=== PATIENT | male | born 1955 | race Caucasian/White ===

== ENCOUNTER → 2017-12-19 | Outpatient (CLI) | payer OTHER ==
--- NOTE | 2017-12-19 11:36 | RADIOLOGY REPORT (SQ) ---
EXAM DESCRIPTION: NM PARATHYROID IMAGING COMPLETED DATE/TIME: 12/19/2017 11:14 am REASON FOR STUDY: HYPERPARATHYROIDISM (E21.3), HYPERCALCEMIA (E83.52) E21.5 DISORDER OF PARATHYROID GLAND, UNSPECIFIED COMPARISON: None. RADIONUCLIDE AND DOSE: 20.8 millicuries Tc-99m Sestamibi. The route of agent administration: Intravenous ADDITIONAL DRUGS AND DOSES: None. TECHNIQUE: Early and delayed images of the neck acquired following radionuclide administration. LIMITATIONS: None. FINDINGS: Thyroid: Normal size. Homogeneous activity. Normal washout. No focal lesions. Parathyroid: No retained activity in the thyroid or elsewhere in the neck to indicate a parathyroid a denoma. Other: No other significant findings. IMPRESSION: NORMAL STUDY. NO EVIDENCE OF PARATHYROID ADENOMA. TECHNICAL DOCUMENTATION: JOB ID: [id number] [employer]- All Rights Reserved Reading location - IP/workstation name: [email or web address]
== END ==
LOC: RAD 07:33
PROVIDERS: ATTEND Nurse Practitioner Family
DX: E21.3 Hyperparathyroidism, unspecified (principal); N18.3 Chronic kidney disease, stage 3 (moderate)
CPT/HCPCS: 78070; A9500

== ENCOUNTER 2018-07-02 07:49 | Day surgery (SDC) | payer OTHER ==
[2018-07-02 08:34] LABS: INTERNATIONAL RATION (INR) 0.87; PROTHROMBIN TIME 12.3 SEC (11.4-15.4)
[2018-07-02 08:35] LABS: PARTIAL THROMBOPLASTIN TIME 25.5 SEC (23.5-35.8)
--- NOTE | 2018-07-02 13:18 | RADIOLOGY REPORT (SQ) ---
EXAM DESCRIPTION: MYELOGRAM CERVICAL; CT CERVICAL SPINE WITH COMPLETED DATE/TIME: 07/02/2018 11:27 am; 07/02/2018 11:47 am REASON FOR STUDY: RADICULOPATHY, CERVICAL REGION M54.12 RADICULOPATHY, CERVICAL REGION COMPARISON: None. FLUOROSCOPY TIME: 1.5 minutes 12 digital radiographic and digital fluoroscopic images of the cervical spine, postmyelogram CT with sagittal and coronal, and oblique reconstructions images saved to PACS. TECHNIQUE: Fluoroscopic guided lumbar myelogram. Postmyelogram CT with multiplanar reconstructions. LIMITATIONS: None. PROCEDURE: After written consent and assessment were obtained, the patient was brought into the fluo roscopy room and placed prone on the table. The patient's lower back was prepped with Betadine and d raped in a sterile fashion and an entry site was selected under live fluoroscopic guidance. The entry site was anesthetized with 5 mL of 1% lidocaine. The spinal needle was advanced through the skin and into the thecal sac at the right paracentral L2-3 level. Contrast was injected into the thecal sac. Following the procedure the needle was removed and a sterile bandage was placed of the site. CONTRAST: 5 mL of Isovue 300 M IMAGES ACQUIRED: Postmyelogram fluoroscopic and radiographic images. Postmyelogram CT with multiplan ar reconstructions TECHNIQUE: After performing lumbar myelogram, axial images were acquired through the lumbar spine wi thout intravenous contrast. Images reviewed with lung, soft tissue and bone windows. Reconstructed coronal and sagittal MPR images reviewed. All images stored on PACS. All CT scanners at this facility use dose modulation, iterative reconstruction, and/or weight based d osing when appropriate to reduce radiation dose to as low as reasonably achievable (ALARA). [facility]: Dose Right [facility]: CareDose [facility]: Dose Right [facility]: Teradose 4D [facility]: Scarosso FINDINGS: SEGMENTATION: Normal. No transitional anatomy. ALIGNMENT: Minimal retrolisthesis of C3 over C4. VERTEBRAL BODIES: No fractures. No dislocation. No acute findings. HARDWARE: Post fusion at C4-5 and C5-6 with anterior fixation plate and intervertebral disc bone coco ts which are incorporated Craniocervical junction, C1-2 and C2-3 are unremarkable. At C3-4, broad diffuse mild disc bulge and bony spurring left greater than right partially effaces th e ventral thecal sac and abuts the ventral cord without cord flattening or significant central stenos is. No right foraminal narrowing. Moderate to high-grade left foraminal stenosis from facet and unc overtebral hypertrophy, best shown on axial image 34, and oblique series 404, image 22. At C4-5, patient is post fusion with an anterior fixation plate and bone graft which is incorporated. There is no significant central or foraminal encroachment. At C5-6, patient is post discectomy and fusion with anterior fixation plate and incorporated bone gra ft. No central stenosis. Minimal bilateral foraminal narrowing. At C6-7, broad diffuse posterior disc bulge and bony spurring is present without significant central stenosis. There is mild to moderate bilateral foraminal narrowing. C7-T1 is unremarkable. T1-2 is unremarkable. PEDICLES, TRANSVERSE PROCESSES, FACETS, POSTERIOR ELEMENTS: No fractures. No dislocation. No centr al canal stenosis. SOFT TISSUES: No significant or acute finding in adjacent soft tissues.Lung apices are clear. No ne ck masses or adenopathy. Minimal carotid bifurcation calcification. OTHER: No other significant finding. IMPRESSION: Post fusion at C4-5 and C5-6 without significant central or foraminal stenosis. Moderate to high-grade left C3-4 foraminal narrowing Mild to moderate bilateral C6-7 foraminal narrowing. COMMENT: Patient medication list reviewed: Yes- Quality ID# [id number]:Eligible professional attests to doc umenting in the medical record they obtained, updated, or reviewed the patient's current medications. TECHNICAL DOCUMENTATION: JOB ID: [id number] Quality ID # [id number]: Final reports with documentation of one or more dose reduction techniques (e.g., Au tomated exposure control, adjustment of the mA and/or kV according to patient size, use of iterative reconstruction technique) 2010 [employer]- All Rights Reserved Reading location - IP/workstation name: [email or web address]
[2018-07-02 13:43] VITALS: BP 125/70
== END 2018-07-02 13:45 | disposition home or self-care (01) ==
LOC: RAD 07:49
PROVIDERS: ATTEND Specialist
DX: M54.12 Radiculopathy, cervical region (principal); I10 Essential (primary) hypertension
CPT/HCPCS: 36415; 72126; 72240; 85610; 85730

== ENCOUNTER → 2018-11-26 | Outpatient (CLI) | payer OTHER ==
--- NOTE | 2018-11-26 09:59 | RADIOLOGY REPORT (SQ) ---
EXAM DESCRIPTION: CERV SP 3 VIEW OR LESS COMPLETED DATE/TIME: 11/26/2018 9:09 am REASON FOR STUDY: NECK PAIN (FLEXION AND EXTENTION) COMPARISON: None. NUMBER OF VIEWS: Two views TECHNIQUE: Llateral flexion and lateral extension radiographic images acquired of the cervical spine . LIMITATIONS: None. FINDINGS: MINERALIZATION: Normal. ALIGNMENT: Anatomic. FLEXION/EXTENSION: No evidence of instability. VERTEBRAE: Vertebral bodies of normal height. DISCS: Mild to moderate disc space narrowing at C3-C4 and C6-C7. Mild adjacent endplate sclerosis a t C6-C7. Mildly prominent bridging anterior osteophyte. HARDWARE: Metallic plate, three screws, prosthetic disc spacers, status post anterior cervical fusio n C4-C6. SOFT TISSUES: No masses or calcifications. Lung apices clear. OTHER: No other significant finding. IMPRESSION: 1. Post surgical changes with hardware anterior cervical fusion C4-C6. 2. Degenerative moderate disc space narrowing C4-C5 and C6-C7. 3. No evidence of instability on flexion/extension views. TECHNICAL DOCUMENTATION: JOB ID: [id number] [employer]- All Rights Reserved Reading location - IP/workstation name: [email or web address]
== END ==
LOC: RAD 08:48
PROVIDERS: ATTEND Nurse Practitioner Family
DX: M50.323 Other cervical disc degeneration at C6-C7 level (principal); Z98.1 Arthrodesis status
CPT/HCPCS: 72040